=== PATIENT | male | born 2005 | race Caucasian/White ===

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

== ENCOUNTER → 2025-09-14 18:50 | Outpatient (REF) | payer OTHER, SELFPAY | LOC: PAVMRI 18:50 | PROVIDERS: ATTENDING PHYSICIAN Psychiatry & Neurology Neurology; FAMILY PHYSICIAN Physician Assistant Medical | DX: M54.9 Dorsalgia, unspecified (principal) | CPT/HCPCS: 72146; 72148 ==